=== PATIENT | female | born 1945 | race Caucasian/White ===

== ENCOUNTER 2017-12-05 12:11 | Observation (INO) | payer BC, MEDICARE ==
[2017-12-05] MEDS ORDERED: Sodium Chloride 0.9% 10 ML FLUSH Syringe IV PRN (12:54)
[2017-12-05] MEDS ORDERED: Zofran 4 MG/2 ML VIAL IV PRN (12:59)
[2017-12-05] MEDS ORDERED: ROCEPHIN 1 Gm-D5w 50 ml Bag** 1 G/50 ML IVPB IV SCH (13:00)
[2017-12-05] MEDS ORDERED: solu-MEDROL 125 MG IV ONE (13:00)
[2017-12-05] MEDS ORDERED: TYLENOL 325 MG PO PRN (13:00)
[2017-12-05] MEDS ORDERED: Zithromax 500 MG/ 250 ML NaCl Premix 500 MG/250 ML IVPB IV SCH (13:00)
[2017-12-05 13:06] LABS: A-aADO2 584; ABG HEMOGLOBIN 12.6; ABG POTASSIUM 3.6 (3.5-5.1); ABG SITE LEFT BRACHIAL; ARTERIAL BLD GAS O2 SATURATION 96.4 % (95-100); ARTERIAL BLOOD GAS FIO2 100 %; ARTERIAL BLOOD GAS PCO2 43 mmHg (35-45); ARTERIAL BLOOD GAS PO2 75 mmHg (75-100); ARTERIAL BLOOD GAS pH 7.35 (7.35-7.45); HCO3- 23.7 (22-28); HGB O2 SAT 93.8 g/dF (94-100); Lactic Acid 1.3 (0.4-2.0); Methhemoglobin 0.7 % (1.4-1.5); paO2 pAO1 0.11
[2017-12-05 13:41] LABS: ALBUMIN 4.8 g/dL (3.5-5.0); BILIRUBIN,TOTAL 0.9 mg/dL (0.2-1.3); Calcium 9.5 mg/dL (8.4-10.2); Creatinine 1 1.31 mg/dL (0.52-1.04); Potassium 3.8 mmol/L (3.5-5.1); Total Protein 8.8 g/dL (6.3-8.2)
[2017-12-05 13:51] LABS: INFLUENZA A NEGATIVE (NEGATIVE); INFLUENZA B POSITIVE (NEGATIVE); RESPIRATORY SYNCTIAL VIRUS NEGATIVE (Negative)
[2017-12-05] MEDS ORDERED: NovoLOG Insulin SQ PRN (13:51)
[2017-12-05 13:57] LABS: Granulocyte Absolute (ANC) 15.37 (1.4-6.9); Hematocrit 37.2 % (35-47); Hemoglobin 12.2 gm/dl (12.0-16.0); Mean Cell Volume 91.4 fl (78-100); Mean Corpuscular Hemoglobin 29.9 pg (26-32); Mean Corpuscular Hgb Concent. 32.8 g/dl (32-36); Mean Platelet Volume 12.9 fl (6-9.5); Platelet Count 142 K/mm3 (150-450); Red Blood Count 4.07 M/mm3 (4.1-5.4); Red Cell Distribution Width 14.7 % (11.5-14.0)
[2017-12-05] MEDS ORDERED: Sodium Chloride 0.9% 10 ML FLUSH Syringe IV SCH (14:00)
[2017-12-05] MEDS ORDERED: OSELTAMIVIR PHOSPHATE 30 MG CAP PO SCH (14:02)
[2017-12-05 14:05] LABS: TROPONIN 0.158 ng/mL (0.000-0.034)
--- NOTE | 2017-12-05 14:05 | XRAY ---
Indication: Short of breath. Hypoxia. Comparison: None. Portable chest demonstrates moderate bibasilar infiltrates/atelectasis with small effusions. Heart is not enlarged for AP portable technique. Bony thorax intact.
[2017-12-05 14:20] LABS: BAND 18 % (0.0-2.0); Lymphocytes 4 % (24-44); Monocyte 3 % (0.0-12.0); Neutrophils 75 % (36.0-66.0); Total Cells Counted 100
[2017-12-05 14:21] LABS: ANISOCYTOSIS 1+; Platelet Estimate NORMAL (NORMAL)
[2017-12-05] MEDS ORDERED: BABY ASPIRIN 81 MG CHEW PO ONE (14:21)
[2017-12-05] MEDS ORDERED: NITRO-BID 2% UD PACKETS TOP SCH (14:22)
[2017-12-05] MEDS ORDERED: DUONEB 0.5-3 MG/3 ml Neb IH SCH (15:00)
[2017-12-05] MEDS ORDERED: solu-MEDROL 125 MG ONE (15:07)
--- NOTE | 2017-12-05 17:56 | PCM.HP ---
History of Present Illness - Chief Complaint Chief Complaint: Shortness of breath, hypoxia Date: 12/05/17 History of Present Illness: is a 72 year old female. who has been coughing for 2 weeks and became very short of breath and weak for the last 5 days and much worse over the last 2 days. Coughing up thick yellow sputum. She had prior to this been doing well with no breathing difficulty. She initially presented to the office where she was found to have pulse ox of 88% on room air that improved to 92% after duoneb treatment. She was sent with her for direct admission. While walking into the hospital she became very short of breath and weak and on arrival was found to have pulse ox of 77% and was placed on 100% O2 and changed to high flow nasal cannule oxygen. This has relieved her shortness of breath but she is still very tired and coughing. She denies any chest pain today or prior to today. She has worsening shortness of breath with laying down - Review of Systems Constitutional: Chills, Fatigue, No Fever Eyes: No Symptoms, No Eye Pain Ears, Nose, & Throat: No Symptoms Respiratory: Cough, Short Of Breath, Wheezing Cardiac: No Chest Pain, No Edema, No Palpitations, No Syncope Abdominal/Gastrointestinal: No Abdominal Pain, No Nausea, No Vomiting, No Diarrhea Genitourinary Symptoms: No Dysuria Musculoskeletal: No Back Pain, No Neck Pain Skin: No Rash Neurological: No Dizziness, No Focal Weakness, No Sensory Changes Psychological: No Symptoms Endocrine: No Symptoms Hematologic/Lymphatic: No Symptoms Immunological/Allergic: No Symptoms Medications & Allergies Home Medications: Home Medication List Albuterol 8 gm Mdi Hfa [Ventolin Hfa MDI] 90 inh IH Q4H PRN PRN 12/05/17 [ History Confirmed 12/05/17] Amlodipine Besylate 10 mg [Norvasc 10 MG] 10 mg PO DAILY 12/05/17 [History Confirmed 12/05/17] Atorvastatin Calcium [Lipitor 20MG Tablet] 20 mg PO DAILY 12/05/17 [History Confirmed 12/05/17] Benzonatate 100 mg PO TID 12/05/17 [History Confirmed 12/05/17] HydrALAzine HCL 25 MG TAB [Apresoline 25 MG TABLET] 25 mg PO BID 12/05/17 [History Confirmed 12/05/17] Levothyroxine Sodium 137 mcg PO DAILY 12/05/17 [History Confirmed 12/05/17] Lisinopril/Hydrochlorothiazide [Lisinopril-Hctz 20-25 mg Tab] 1 each PO DAILY [History Confirmed 12/05/17] Metformin HCl 1,000 mg PO BID 12/05/17 [History Confirmed 12/05/17] Metformin HCl 500 mg [Glucophage 500 MG] 500 mg PO DAILY 12/05/17 [ History Confirmed 12/05/17] Allergies/Adverse Reactions: Allergies Allergy/AdvReac Type Severity Reaction Status Date / Time NKA Allergy Verified 12/05/17 17:06 - Past Medical History Neurological History: No Pertinent History ENT History: No Pertinent History Cardiac History: High Cholesterol, Hypertension Respiratory History: No Pertinent History Endocrine Medical History: Diabetes Type II, Hypothyroidism Musculoskelatal History: No Pertinent History GI Medical History: No Pertinent History, Gallbladder Disease History: No Pertinent History Pyscho-Social History: No Pertinent History Reproductive Disorders: No Pertinent History Comment: spent 7 months at [facility] 35 years. colon resection and colostomy reversal 35yrs ago - Female History Are you now?: No - Past Surgical History Neuro Surgical History: No Pertinent History Cardiac History: No Pertinent History Respiratory Surgery: No Pertinent History GI Surgical History: Cholecystectomy, Colon Resection Genitourinary Surgical Hx: No Pertinent History Musculskeletal Surgical Hx: No Pertinent History Female Surgical History: No Pertinent History - Social History Smoking Status: Never smoker Exposure to second hand smoke: No Alcohol: None Drug Use: none - Physical Exam Vital Signs: Vital Signs - 24 hr Temp Pulse Resp BP Pulse Ox 12/05/17 17:32 98.1 F 12/05/17 17:15 109 H 26 H 98 12/05/17 14:49 97.8 F 122 H 22 162/80 95 12/05/17 14:34 109 H 32 H 98 12/05/17 14:04 98 F 124 H 24 163/70 12/05/17 13:48 124 H 24 163/70 12/05/17 13:22 122 H 40 H 92 L 12/05/17 12:48 98 F 124 H 40 H 136/83 76 L Oxygen-Last 24 hours O2 Percentage 2 Liters = 28% General Appearance: moderate distress, alert, obese Neurologic Exam: alert, oriented x 3, cooperative, normal mood/affect, nml cerebellar function, nml station & gait, sensation nml, No motor deficits Eye Exam: PERRL/EOMI, eyes nml inspection, pale conjunctivae, No scleral icterus Ears, Nose, Throat Exam: normal ENT inspection, pharynx normal, dry mucous membranes Neck Exam: normal inspection, non-tender, supple, full range of motion, No JVD, No lymphadenopathy Respiratory Exam: respiratory distress, crackles/rales (wet bilateral), wheezing Cardiovascular Exam: normal peripheral pulses, tachycardia, No murmur, No edema Gastrointestinal/Abdomen Exam: soft, normal bowel sounds, No tenderness, No mass Back Exam: normal inspection, normal range of motion, No CVA tenderness, No vertebral tenderness Extremity Exam: normal inspection, pelvis stable Skin Exam: normal color, warm, dry, No rash Lymphatic Exam: No adenopathy Results - Labs Lab/Micro Results: Accuchecks Date 12/05/17 Time 16:30 Accucheck Value: 274 Lab Results-Last 24 Hours 12/05/17 12/05/17 12/05/17 Range/Units 13:02 13:17 13:17 WBC 18.0 H (4.0-10.5) K/mm3 RBC 4.07 L (4.1-5.4) M/mm3 Hgb 12.2 (12.0-16.0) gm/dl Hct 37.2 (35-47) % MCV 91.4 (78-100) fl MCH 29.9 (26-32) pg MCHC 32.8 (32-36) g/dl RDW 14.7 H (11.5-14.0) % Plt Count 142 L (150-450) K/mm3 MPV 12.9 H (6-9.5) fl Absolute Granulocytes 15.37 H (1.4-6.9) Segmented Neutrophils 75 H (36.0-66.0) % Band Neutrophils 18 H (0.0-2.0) % Lymphocytes (Manual) 4 L (24-44) % Monocytes (Manual) 3 (0.0-12.0) % Differential Comment ABNORMAL Platelet Estimate NORMAL (NORMAL) Anisocytosis 1+ Puncture Site LEFT BRACHIAL pCO2 43 (35-45) mmHg pO2 75 (75-100) mmHg Base Excess -2.0 (-2.0-2.0) O2 Saturation 93.8 L (94-100) g/dF ABG pH 7.35 (7.35-7.45) ABG HCO3 23.7 (22-28) ABG O2 Sat (Measured) 96.4 (95-100) % Larry Test NOT APPLICABLE A-a Gradient 584 a/A Ratio 0.11 Hemoglobin 12.6 Carboxyhemoglobin 2.0 (0.0-6.9) % THgb Methemoglobin 0.7 L (1.4-1.5) % Potassium 3.6 3.8 (3.5-5.1) Temperature 37.0 C POC O2 Flow Rate 100 % Sodium 135 L (137-145) mmol/L Chloride 94 L (98-107) mmol/L Carbon Dioxide 22 (22-30) mmol/L Anion Gap 23.0 H (5-15) MEQ/L BUN 39 H (7-17) mg/dL Creatinine 1.31 H (0.52-1.04) mg/dL Estimated GFR 42.2 ML/MIN Glucose 235 H (74-106) mg/dL Lactic Acid 1.3 (0.4-2.0) Calcium 9.5 (8.4-10.2) mg/dL Total Bilirubin 0.90 (0.2-1.3) mg/dL AST 34 (14-36) U/L ALT 23 (0-35) U/L Alkaline Phosphatase 140 H (38-126) U/L Troponin I 0.158 H* (0.000-0.034) ng/mL NT-Pro-B Natriuret Pep 2340 H (0-900) pg/mL Serum Total Protein 8.8 H (6.3-8.2) g/dL Albumin 4.8 (3.5-5.0) g/dL Influenza Type A Ag (NEGATIVE) Influenza Type B Ag (NEGATIVE) RSV (PCR) (Negative) 12/05/17 12/05/17 Range/Units 13:17 15:00 WBC (4.0-10.5) K/mm3 RBC (4.1-5.4) M/mm3 Hgb (12.0-16.0) gm/dl Hct (35-47) % MCV (78-100) fl MCH (26-32) pg MCHC (32-36) g/dl RDW (11.5-14.0) % Plt Count (150-450) K/mm3 MPV (6-9.5) fl Absolute Granulocytes (1.4-6.9) Segmented Neutrophils (36.0-66.0) % Band Neutrophils (0.0-2.0) % Lymphocytes (Manual) (24-44) % Monocytes (Manual) (0.0-12.0) % Differential Comment Platelet Estimate (NORMAL) Anisocytosis Puncture Site pCO2 (35-45) mmHg pO2 (75-100) mmHg Base Excess (-2.0-2.0) O2 Saturation (94-100) g/dF ABG pH (7.35-7.45) ABG HCO3 (22-28) ABG O2 Sat (Measured) (95-100) % Larry Test A-a Gradient a/A Ratio Hemoglobin Carboxyhemoglobin (0.0-6.9) % THgb Methemoglobin (1.4-1.5) % Potassium (3.5-5.1) Temperature C POC O2 Flow Rate % Sodium (137-145) mmol/L Chloride (98-107) mmol/L Carbon Dioxide (22-30) mmol/L Anion Gap (5-15) MEQ/L BUN (7-17) mg/dL Creatinine (0.52-1.04) mg/dL Estimated GFR ML/MIN Glucose (74-106) mg/dL Lactic Acid (0.4-2.0) Calcium (8.4-10.2) mg/dL Total Bilirubin (0.2-1.3) mg/dL AST (14-36) U/L ALT (0-35) U/L Alkaline Phosphatase (38-126) U/L Troponin I 0.259 H* (0.000-0.034) ng/mL NT-Pro-B Natriuret Pep (0-900) pg/mL Serum Total Protein (6.3-8.2) g/dL Albumin (3.5-5.0) g/dL Influenza Type A Ag NEGATIVE (NEGATIVE) Influenza Type B Ag POSITIVE (NEGATIVE) RSV (PCR) NEGATIVE (Negative) Accuchecks Date 12/05/17 Time 16:30 Accucheck Value: 274 - Radiology Impressions Radiology Exams & Impressions: Radiology Procedures Category Date Time Status CHEST 1 VIEW (PORTABLE) Routine Exams 12/05/17 13:30 Completed ECHO W/2D AND DOPPLER [US] Routine Exams 12/05/17 14:00 Taken - Other Procedures and Tests Respiratory Therapy 12/05/17 12:56 Oxygen NASAL CANNULA 2 lpm Respiratory Nebulizer 1500,1900,2300,0300,0700,1100 12/05/17 13:20 Oxygen High Flow High Flow 45 lpm Assessment/Plan (1) Sepsis Current Visit: Yes Status: Acute Assessment & Plan: secondary to influenza B pneumonia with concern for secondary bacterial infection initially has received tamiflu 30mg, 1 g of ceftriaxone and 500 mg of azithromycin and 125 mg of solumedrol. and duoneb treatments she has blood and sputum cultures ordered She has also received 324 mg of chewable aspirin, nitropaste to chest, and 20 mg of iv lasix with Hollis placed with minimal output and has denied chest pain She has a left bundle branch block on ekg with no previous her troponin increased significantly increased in the 2.5 hours since admission She had echocardiogram done as well with read pending. She is currently on 15 L oxymask with oxygen saturation maintained in thte 94 to 97% range Discussed the troponin elevation and LBBB with Dr. Mckeon and recommends transfer to [facility] likely subendocardial WA suspected 3rd troponin just returned elevated significantly compared to 1st and 2nd at 0.9 and case was discussed with hospitalist Dr. Hyde at [facility] who kindly accepts patient for transfer to ICU at [facility] she will be transferred by [facility]. The patient and family are all updated at the bedside and in agreement with the plan. (2) Pneumonia Current Visit: Yes Status: Acute Code(s): J18.9 - PNEUMONIA, UNSPECIFIED ORGANISM (3) Essential hypertension Current Visit: Yes Status: Acute Code(s): I10 - ESSENTIAL (PRIMARY) HYPERTENSION (4) Influenza B Current Visit: Yes Status: Acute Code(s): J10.1 - FLU DUE TO OTH IDENT INFLUENZA VIRUS W OTH RESP MANIFEST (5) Acute respiratory failure Current Visit: Yes Status: Acute Code(s): J96.00 - ACUTE RESPIRATORY FAILURE , UNSP W HYPOXIA OR HYPERCAPNIA (6) Acute kidney injury Current Visit: Yes Status: Acute Code(s): N17.9 - ACUTE KIDNEY FAILURE, UNSPECIFIED (7) Type 2 myocardial infarction Current Visit: Yes Status: Acute Code(s): I21.A1 - MYOCARDIAL INFARCTION TYPE 2 (8) Left bundle branch block Current Visit: Yes Status: Acute Code(s): I44.7 - LEFT BUNDLE-BRANCH BLOCK, UNSPECIFIED (9) Type 2 diabetes mellitus Current Visit: Yes Status: Chronic Assessment & Plan: Controlled last A1c 6.8% metformin held on sliding scale insulin (10) Hyperlipidemia Current Visit: Yes Status: Chronic Code(s): E78.5 - HYPERLIPIDEMIA, UNSPECIFIED
[2017-12-05 19:08] LABS: Appearance CLOUDY (CLEAR); Bilirubin NEGATIVE (NEGATIVE); Blood 50 Ery/ul (0-5); Glucose NEGATIVE (NEGATIVE); Ketones NEGATIVE (NEGATIVE); Leukocyte Esterase NEGATIVE (NEGATIVE); Nitrite NEGATIVE (NEGATIVE); Protein,Urine Dip 500 (Negative); Urobilinogen NORMAL mg/dL (0-1)
[2017-12-05 19:09] LABS: Amourphous Crystal MODERATE /HPF (NEGATIVE); Bacteria MODERATE /HPF (NEGATIVE); Epithelial Cells FEW /HPF (FEW)
[2017-12-05 19:18] VITALS: BP 119/58; PULSE 98; O2SAT 94
[2017-12-06 11:08] LABS: Pathologist Review E
--- NOTE | 2017-12-06 13:03 | ECHO ---
Transthoracic echocardiographic examination and color Doppler was done on 12/05/2017. INDICATION: Elevated troponin-I and shortness of breath. IMPRESSION: 1) REGIONAL WALL MOTION ABNORMALITY WITH HYPOKINESIA OF THE MID TO DISTAL SEPTUM APEX. ESTIMATED GLOBAL LEFT VENTRICULAR EJECTION FRACTION OF AROUND 40%. 2) MILD MITRAL REGURGITATION. 3) AORTIC VALVE SCLEROSIS. PEAK TRANSAORTIC GRADIENT OF 32 MM OF MERCURY AND A MEAN GRADIENT OF 21. 4) THERE IS MILD AORTIC REGURGITATION. 5) MILD TRICUSPID REGURGITATION. RIGHT VENTRICULAR SYSTOLIC PRESSURE OF 42 MM OF MERCURY. 6) LEFT VENTRICULAR HYPERTROPHY. 7) LEFT ATRIAL ENLARGEMENT. The left ventricle is visualized and demonstrated regional wall motion abnormality with hypokinesia of the mid to distal septum apex. With estimated global left ventricular ejection fraction of 40%. There is concentric left ventricular hypertrophy. The mitral valve is thickened but opens adequately. There is mild mitral regurgitation. Left atrium is enlarged. The aortic valve is sclerotic and appears to be bicuspid. The peak transaortic gradient is about 32 mm of Mercury with a mean gradient of 21. There is associated mild aortic regurgitation. The right side chambers are normal. There is mild tricuspid regurgitation. The right ventricular systolic pressure of 42 mm of Mercury.
[2017-12-06] MEDS ORDERED: Lasix 20 MG/2 ML IV ONE (14:22)
== END 2017-12-05 19:55 | disposition short-term general hospital (02) ==
LOC: MED SURG 12:19
PROVIDERS: ADMIT Family Medicine; ATTEND Family Medicine
DX: A41.9 Sepsis, unspecified organism (principal); J10.1 Influenza due to other identified influenza virus with other respiratory manifestations; I10 Essential (primary) hypertension; J96.00 Acute respiratory failure, unspecified whether with hypoxia or hypercapnia; N17.9 Acute kidney failure, unspecified; I21.A1 Myocardial infarction type 2; I44.7 Left bundle-branch block, unspecified; E78.5 Hyperlipidemia, unspecified; R79.89 Other specified abnormal findings of blood chemistry; E11.9 Type 2 diabetes mellitus without complications; Z79.4 Long term (current) use of insulin; E03.9 Hypothyroidism, unspecified
CPT/HCPCS: 36415; 36600; 71045; 80053; 81000; 82375; 82803; 82962; 83605; 83880; 84484; 85025; 87040; 87086; 87631; 93005; 93268; 93306; 94002; 94640; 94760; G0378; J0456; J0696; J2930; A9270-GY